=== PATIENT | male | born 2000 | race Caucasian/White ===

== ENCOUNTER 2025-08-16 09:47 | Emergency (ER) | payer OTHER, MEDICAID ==
[~2025-08-16] VITALS: Ht 170.2 cm; Wt 62.0 kg
[2025-08-16 09:50] VITALS: TEMP 36.6; O2SAT 98
[2025-08-16] MEDS: KETOROLAC 30MG/ML VIAL IM ONE (12:29)
[2025-08-16] MEDS ORDERED: IBUP-1455 MT (12:53)
[2025-08-16 13:07] VITALS: BP 102/68; PULSE 67; RESP 16; O2SAT 100
== END 2025-08-16 13:08 | disposition home or self-care (01) ==
LOC: ER 10:05
DX: S50.311A Abrasion of right elbow, initial encounter (principal); R07.2 Precordial pain; R07.89 Other chest pain; J45.909 Unspecified asthma, uncomplicated; V89.2XXA Person injured in unspecified motor-vehicle accident, traffic, initial encounter; Y93.51 Activity, roller skating (inline) and skateboarding; Y92.410 Unspecified street and highway as the place of occurrence of the external cause; Y99.8 Other external cause status
CPT/HCPCS: 99283; 71101; 96372; J1885